=== PATIENT | male | born 1945 | race Two or more races ===

== ENCOUNTER 2017-10-11 15:02 | Inpatient (IN) | payer OTHER ==
[~2017-10-11] VITALS: Ht 167.6 cm; Wt 71.2 kg
[2017-10-11] MEDS ORDERED: CIPRO500 MG (16:20)
[2017-10-11] MEDS ORDERED: LISINOPRIL20 MG (16:21)
[2017-10-11] MEDS ORDERED: GLIPIZIDE ER5 MG (16:21)
[2017-10-11] MEDS ORDERED: ASPIR 8181 MG (16:22)
[2017-10-11] MEDS ORDERED: PLAVIX75 MG (16:22)
[2017-10-11] MEDS ORDERED: SIMVASTATIN20 MG (16:22)
[2017-10-22] MEDS ORDERED: PLAVIX75 MG PO (11:12)
[2017-10-22] MEDS ORDERED: SIMVASTATIN20 MG PO (11:12)
[2017-10-22] MEDS ORDERED: GLIPIZIDE ER5 MG PO (11:12)
[2017-10-22] MEDS ORDERED: LISINOPRIL20 MG PO (11:12)
[2017-10-22] MEDS ORDERED: ASA-EC81 MG PO (11:12)
== END 2017-10-22 13:48 | disposition home or self-care (01) | DRG 617 ==
LOC: ER 15:02 → SURG 10-12 12:03 → SEC-K 10-12 12:03 → SURG 10-12 17:15
PROVIDERS: Specialist
PROC: B44HZZZ Ultrasonography of Bilateral Lower Extremity Arteries (ICD-10-PCS; 2017-10-14)
PROC: 0Y6P0Z0 Detachment at Right 1st Toe, Complete, Open Approach (ICD-10-PCS; 2017-10-17)
PROC: 0Y6R0Z0 Detachment at Right 2nd Toe, Complete, Open Approach (ICD-10-PCS; principal; 2017-10-17 08:15)
DX: E11.621 Type 2 diabetes mellitus with foot ulcer (principal); L03.115 Cellulitis of right lower limb; L97.518 Non-pressure chronic ulcer of other part of right foot with other specified severity; E11.52 Type 2 diabetes mellitus with diabetic peripheral angiopathy with gangrene; I96 Gangrene, not elsewhere classified; N17.8 Other acute kidney failure; E11.65 Type 2 diabetes mellitus with hyperglycemia; I10 Essential (primary) hypertension; E78.4 Other hyperlipidemia; I25.10 Atherosclerotic heart disease of native coronary artery without angina pectoris; L03.031 Cellulitis of right toe; B95.61 Methicillin susceptible Staphylococcus aureus infection as the cause of diseases classified elsewhere; D63.8 Anemia in other chronic diseases classified elsewhere

== ENCOUNTER 2017-12-15 14:54 | Inpatient (IN) | payer OTHER ==
[~2017-12-15] VITALS: Ht 170.2 cm; Wt 68.5 kg
[~2017-12-15 14:54] MED LIST: ASA-EC81 MG PO; ASPIR 8181 MG; CIPRO500 MG; GLIPIZIDE ER5 MG; GLIPIZIDE ER5 MG PO; LISINOPRIL20 MG; LISINOPRIL20 MG PO; PLAVIX75 MG; PLAVIX75 MG PO; SIMVASTATIN20 MG; SIMVASTATIN20 MG PO
[2017-12-26] MEDS ORDERED: GABAPENTIN600 MG PO (10:40)
[2017-12-26] MEDS ORDERED: BACTRIM DS TAB1 EACH PO (10:51)
== END 2017-12-26 11:37 | DRG 240 ==
LOC: ER 14:54 → MEDJ 22:44 → MEDI 22:44 → MEDJ 12-19 10:50
PROVIDERS: Specialist
PROC: B44FZZZ Ultrasonography of Right Lower Extremity Arteries (ICD-10-PCS; 2017-12-17)
PROC: 3E0F7GC Introduction of Other Therapeutic Substance into Respiratory Tract, Via Natural or Artificial Opening (ICD-10-PCS; 2017-12-18)
PROC: 30233N1 Transfusion of Nonautologous Red Blood Cells into Peripheral Vein, Percutaneous Approach (ICD-10-PCS; 2017-12-18)
PROC: 4A12X4Z Monitoring of Cardiac Electrical Activity, External Approach (ICD-10-PCS; 2017-12-18)
PROC: 0Y6H0Z1 Detachment at Right Lower Leg, High, Open Approach (ICD-10-PCS; principal; 2017-12-22 18:30)
DX: E11.52 Type 2 diabetes mellitus with diabetic peripheral angiopathy with gangrene (principal); L03.115 Cellulitis of right lower limb; I70.261 Atherosclerosis of native arteries of extremities with gangrene, right leg; N17.8 Other acute kidney failure; I25.10 Atherosclerotic heart disease of native coronary artery without angina pectoris; E78.4 Other hyperlipidemia; E11.22 Type 2 diabetes mellitus with diabetic chronic kidney disease; I12.9 Hypertensive chronic kidney disease with stage 1 through stage 4 chronic kidney disease, or unspecified chronic kidney disease; N18.1 Chronic kidney disease, stage 1; L97.514 Non-pressure chronic ulcer of other part of right foot with necrosis of bone; B95.2 Enterococcus as the cause of diseases classified elsewhere; D63.1 Anemia in chronic kidney disease; E87.5 Hyperkalemia; E11.65 Type 2 diabetes mellitus with hyperglycemia; Z86.73 Personal history of transient ischemic attack (TIA), and cerebral infarction without residual deficits; B95.61 Methicillin susceptible Staphylococcus aureus infection as the cause of diseases classified elsewhere

== ENCOUNTER 2021-07-19 09:41 | Emergency (ER) | payer OTHER ==
[~2021-07-19] VITALS: Ht 170.2 cm; Wt 71.2 kg
[~2021-07-19 09:41] MED LIST changes: +BACTRIM DS TAB1 EACH PO; +GABAPENTIN600 MG PO
[2021-07-19] MEDS ORDERED: LANTUS SOL100 UNIT/1 (09:59)
[2021-07-19] MEDS ORDERED: HUMALOG100 UNIT/2 (09:59)
[2021-07-19] MEDS ORDERED: COZAAR50 MG PO (09:59)
== END 2021-07-19 11:05 | disposition home or self-care (01) ==
LOC: ER 09:41
DX: S80.812A Abrasion, left lower leg, initial encounter (principal); E11.9 Type 2 diabetes mellitus without complications; W45.8XXA Other foreign body or object entering through skin, initial encounter; Y93.89 Activity, other specified; Y92.89 Other specified places as the place of occurrence of the external cause; Y99.8 Other external cause status

== ENCOUNTER → 2022-12-22 | Emergency (ER) | payer OTHER ==
[~2022-12-22] VITALS: Ht 170.2 cm; Wt 70.3 kg
[~2022-12-22] MED LIST changes: +COZAAR50 MG PO; +HUMALOG100 UNIT/2; +LANTUS SOL100 UNIT/1
== END | disposition home or self-care (01) ==
LOC: ER 09:22
DX: J03.81 Acute recurrent tonsillitis due to other specified organisms (principal); J45.998 Other asthma; J30.9 Allergic rhinitis, unspecified

== ENCOUNTER 2023-02-12 19:07 | Emergency (ER) | payer OTHER ==
[~2023-02-12] VITALS: Ht 170.2 cm; Wt 67.1 kg
== END 2023-02-12 21:43 | disposition home or self-care (01) ==
LOC: ER 19:07
DX: R60.0 Localized edema (principal)

== ENCOUNTER 2024-02-25 07:40 | Inpatient (IN) | payer OTHER ==
[~2024-02-25] VITALS: Ht 170.2 cm; Wt 62.6 kg
--- NOTE | 2024-02-25 08:01 | NUR ---
PACIENTE ALERTA Y ORIENTADO X 3. REFIERE ULCERA SUPURANDO Y CON INFLAMACION EN ROSE MARY DEDO PIE IZQ. REFIERE SER PACIENTE DE DR DIEUDONNE GUTIÉRREZ QUIEN LE AMPUTO TONNY REGAN.
[2024-02-25] MEDS ORDERED: GLYXAMBI 10 MG1 EACH PO (08:05)
[2024-02-25] MEDS ORDERED: XARELTO10 MG PO (08:05)
[2024-02-25] MEDS ORDERED: NORVASC2.5 MG PO (08:06)
[2024-02-25] MEDS ORDERED: ECOTRIN81 MG (08:06)
[2024-02-25] MEDS ORDERED: LIPITOR80 MG PO (08:07)
[2024-02-25] MEDS ORDERED: ZETIA10 MG (08:08)
--- NOTE | 2024-02-25 08:47 | NUR ---
PTE ALERTA Y ORIENTAOD X3, SE EDUCA SOBRE TX MEDICO Y REFIERE ACEPTAR. SE COELCTAN MUESTRAS DE LAB BAJO MEDIDAS ASEPTICA. SE CANALIZA PTE.
[2024-02-25 08:54] LABS: HEMATOCRIT 36.6 % (39.0-48.0); HEMOGLOBIN 12.7 g/dL (13-16.00); MEAN CELL VOLUME 100.3 fL (80.0-100.00); MEAN CORPUSCULAR HEMOGLOBIN 34.9 pg (27.00-32.0); MEAN CORPUSCULAR HGB CONC 34.8 g/dl (32.0-36.0); PLATELET COUNT 195 K/uL (150-450); RED BLOOD COUNT 3.65 M/uL (4.00-6.00)
[2024-02-25 09:00] LABS: ERYTHROCYTE SEDIMENTATION RATE 30 mm/hr
[2024-02-25 09:31] LABS: ALBUMIN 3.8 gm/dL (3.4-5.0); BILIRUBIN TOTAL 1.24 mg/dL (0.3-1.2); CALCIUM 9.3 mg/dL (8.5-10.1); CREATININE SERUM 2.43 mg/dL (0.70-1.30); GFR 25.87; GLOBULINA 4.6 G/DL (2.4-3.5); POTASSIUM 4.58 mEq/L (3.5-5.1); TOTAL PROTEIN 8.4 gm/dL (6.4-8.2)
[2024-02-25 09:43] LABS: C-REACTIVE PROTEIN 7.01 MG/DL (0.00-0.29)
[2024-02-25] MEDS ORDERED: FAMOTIDINE/PF 20 MG in 0.9 % SODIUM CHLORIDE 100 ML IV SCH (14:36)
[2024-02-25] MEDS ORDERED: 0.9 % SODIUM CHLORIDE 1,000 ML IV SCH (14:45)
[2024-02-25] MEDS ORDERED: INSULIN LISPRO 1,000 UNIT/10 ML UNITS SUBCUTANEO PRN (14:45)
[2024-02-25] MEDS ORDERED: ONDANSETRON HCL 4 MG in 0.9 % SODIUM CHLORIDE 50 ML IV PRN (14:45)
[2024-02-25] MEDS ORDERED: ACETAMINOPHEN 325 MG TABLET PO PRN (14:45)
[2024-02-25] MEDS ORDERED: DEXTROSE 50 % IN WATER 0.5 G/ML DISP.SYRIN IV PRN (14:45)
[2024-02-25] MEDS ORDERED: MORPHINE SULFATE 2 MG/ML CARTRIDGE IV PRN (15:00)
[2024-02-25] MEDS ORDERED: FAMOTIDINE/PF 20 MG/2 ML VIAL ONE (15:30)
[2024-02-25] MEDS ORDERED: INSULIN LISPRO 1,000 UNIT/10 ML UNITS SUBCUTANEO ONE (16:32)
[2024-02-25] MEDS ORDERED: levoFLOXacin IN DEXTROSE 5 % 150 ML IV SCH (17:00)
[2024-02-25 17:17] LABS: INR 1.09; PARTIAL THROMBOPLASTIN TIME 36.3 SECONDS (22.0-34.0); PROTHROMBIN TIME 11.4 SECONDS (9.0-11.5)
[2024-02-25 17:20] LABS: ALBUMIN 3.5 gm/dL (3.4-5.0); CALCIUM 9.2 mg/dL (8.5-10.1); CREATININE SERUM 2.25 mg/dL (0.70-1.30); GFR 28.27; PHOSPHOROUS 3.2 mg/dL (2.5-4.9); POTASSIUM 4.46 mEq/L (3.5-5.1)
[2024-02-26] MEDS ORDERED: DEXTROSE 50 % IN WATER 0.5 G/ML VIAL IV PRN (07:15)
[2024-02-26] MEDS ORDERED: FAMOTIDINE/PF 20 MG/2 ML VIAL ONE (09:40)
[2024-02-26] MEDS ORDERED: VANCOMYCIN HCL 1,000 MG VIAL IV SCH (16:00)
[2024-02-26] MEDS ORDERED: CEFTRIAXONE SODIUM 2,000 MG VIAL IV SCH (17:00)
[2024-02-27 15:18] LABS: ALBUMIN 2.9 gm/dL (3.4-5.0); BILIRUBIN TOTAL 0.44 mg/dL (0.3-1.2); CALCIUM 8.5 mg/dL (8.5-10.1); CREATININE SERUM 2.17 mg/dL (0.70-1.30); GFR 29.48; GLOBULINA 3.7 G/DL (2.4-3.5); POTASSIUM 5.25 mEq/L (3.5-5.1); TOTAL PROTEIN 6.6 gm/dL (6.4-8.2)
[2024-02-28] MEDS ORDERED: INSULIN GLARGINE,HUM.REC.ANLOG 1,000 UNITS/10 ML UNITS SUBCUTANEO SCH ×2 (10:49→17:00)
[2024-02-29 08:15] LABS: ALBUMIN 2.6 gm/dL (3.4-5.0); CALCIUM 8.2 mg/dL (8.5-10.1); CREATININE SERUM 2.01 mg/dL (0.70-1.30); GFR 32.2; MAGNESIUM 1.9 mg/dL (1.8-2.4); PHOSPHOROUS 3.4 mg/dL (2.5-4.9); POTASSIUM 5.18 mEq/L (3.5-5.1)
[2024-02-29 08:18] LABS: C-REACTIVE PROTEIN 5.78 MG/DL (0.00-0.29)
[2024-02-29 08:36] LABS: HEMATOCRIT 30.4 % (39.0-48.0); HEMOGLOBIN 10.6 g/dL (13-16.00); MEAN CELL VOLUME 101.6 fL (80.0-100.00); MEAN CORPUSCULAR HEMOGLOBIN 35.5 pg (27.00-32.0); PLATELET COUNT 187 K/uL (150-450); RED BLOOD COUNT 2.99 M/uL (4.00-6.00); RED CELL DISTRIBUTION WIDTH 12.6 % (11.5-14.5)
[2024-03-01] MEDS ORDERED: CEFAZOLIN SODIUM 1,000 MG VIAL IV SCH (17:00)
[2024-03-01 20:40] LABS: PH,URINE 5.5 (5.0-8.0); URINE APPEARANCE Clear; URINE BILIRRUBIN Negative (NEGATIVE); URINE BLOOD Negative; URINE COLOR Yellow; URINE LEUKOCYTE Negative; URINE NITRATE Negative; URINE PROTEIN Trace (NEGATIVE)
[2024-03-01 20:48] LABS: URINE EPITHELIAL CELLS 1.3 uL (0.0-38.8); URINE GLUCOSE >=1000 MG/DL (NEGATIVE); URINE RBC 1.8 uL (0.0-20.8)
[2024-03-02] MEDS ORDERED: FAMOtidine 20 MG TABLET PO SCH (09:00)
[2024-03-02 12:24] LABS: ALBUMIN 2.7 gm/dL (3.4-5.0); BILIRUBIN TOTAL 0.29 mg/dL (0.3-1.2); CALCIUM 8.4 mg/dL (8.5-10.1); CREATININE SERUM 1.51 mg/dL (0.70-1.30); GFR 44.8; GLOBULINA 3.7 G/DL (2.4-3.5); POTASSIUM 5.08 mEq/L (3.5-5.1); TOTAL PROTEIN 6.4 gm/dL (6.4-8.2)
[2024-03-02] MEDS ORDERED: CEFAZOLIN SODIUM 1,000 MG VIAL IV SCH (21:00)
[2024-03-03 10:14] LABS: CALCIUM 8.1 mg/dL (8.5-10.1); CREATININE SERUM 1.5 mg/dL (0.70-1.30); GFR 45.14; POTASSIUM 4.38 mEq/L (3.5-5.1)
[2024-03-04 07:12] LABS: ALBUMIN 2.5 gm/dL (3.4-5.0); CREATININE SERUM 1.5 mg/dL (0.70-1.30); GFR 45.14; PHOSPHOROUS 3.1 mg/dL (2.5-4.9); POTASSIUM 4.86 mEq/L (3.5-5.1)
[2024-03-06] MEDS ORDERED: CLOPIDOGREL BISULFATE 75 MG TABLET PO SCH ×2 (10:03→10:05)
[2024-03-06] MEDS ORDERED: ASPIRIN 81 MG TAB.CHEW PO SCH (10:04)
[2024-03-07 06:25] LABS: CALCIUM 8.1 mg/dL (8.5-10.1); CREATININE SERUM 1.78 mg/dL (0.70-1.30); GFR 37.05; POTASSIUM 4.95 mEq/L (3.5-5.1)
[2024-03-07 06:29] LABS: HEMATOCRIT 28.3 % (39.0-48.0); MEAN CORPUSCULAR HEMOGLOBIN 35.7 pg (27.00-32.0); MEAN CORPUSCULAR HGB CONC 35.4 g/dl (32.0-36.0); PLATELET COUNT 209 K/uL (150-450); RED CELL DISTRIBUTION WIDTH 12.8 % (11.5-14.5)
[2024-03-08 12:02] LABS: INR 1.08; PARTIAL THROMBOPLASTIN TIME 31.4 SECONDS (22.0-34.0); PROTHROMBIN TIME 11.3 SECONDS (9.0-11.5)
[2024-03-08] MEDS ORDERED: MORPHINE SULFATE 4 MG/ML CARTRIDGE IV PRN (18:00)
[2024-03-08] MEDS ORDERED: KETOROLAC TROMETHAMINE 30 MG VIAL IV SCH (18:00)
[2024-03-08] MEDS ORDERED: GABAPENTIN 300 MG CAPSULE PO NR (18:45)
[2024-03-09] MEDS ORDERED: TRAMADOL HCL 50 MG TABLET PO PRN (06:15)
[2024-03-09] MEDS ORDERED: GABAPENTIN 300 MG CAPSULE PO SCH (09:00)
[2024-03-10 12:48] LABS: HEMATOCRIT 30.7 % (39.0-48.0); HEMOGLOBIN 10.6 g/dL (13-16.00); MEAN CELL VOLUME 100.9 fL (80.0-100.00); MEAN CORPUSCULAR HGB CONC 34.7 g/dl (32.0-36.0); PLATELET COUNT 222 K/uL (150-450); RED BLOOD COUNT 3.04 M/uL (4.00-6.00); RED CELL DISTRIBUTION WIDTH 12.8 % (11.5-14.5)
[2024-03-10 13:25] LABS: ALBUMIN 2.5 gm/dL (3.4-5.0); BILIRUBIN TOTAL 0.31 mg/dL (0.3-1.2); CALCIUM 7.9 mg/dL (8.5-10.1); CREATININE SERUM 1.61 mg/dL (0.70-1.30); GFR 41.6; GLOBULINA 3.4 G/DL (2.4-3.5); POTASSIUM 4.4 mEq/L (3.5-5.1); TOTAL PROTEIN 5.9 gm/dL (6.4-8.2)
== END 2024-03-10 16:15 | disposition home or self-care (01) | DRG 256 ==
LOC: ER 07:41 → MEDI 15:59
PROVIDERS: General Practice; Internal Medicine; Internal Medicine Infectious Disease; Specialist; ADMIT Internal Medicine; ATTEND Internal Medicine
PROC: B44HZZZ Ultrasonography of Bilateral Lower Extremity Arteries (ICD-10-PCS; 2024-02-25)
PROC: BL31ZZZ Magnetic Resonance Imaging (MRI) of Lower Extremity Connective Tissue (ICD-10-PCS; 2024-02-26)
PROC: 0Y6S0Z1 Detachment at Left 2nd Toe, High, Open Approach (ICD-10-PCS; principal; 2024-03-08 16:00)
DX: E11.52 Type 2 diabetes mellitus with diabetic peripheral angiopathy with gangrene (principal); I96 Gangrene, not elsewhere classified; L97.528 Non-pressure chronic ulcer of other part of left foot with other specified severity; M86.172 Other acute osteomyelitis, left ankle and foot; N17.9 Acute kidney failure, unspecified; E11.621 Type 2 diabetes mellitus with foot ulcer; L03.032 Cellulitis of left toe; D72.829 Elevated white blood cell count, unspecified; E11.649 Type 2 diabetes mellitus with hypoglycemia without coma; B95.61 Methicillin susceptible Staphylococcus aureus infection as the cause of diseases classified elsewhere; I10 Essential (primary) hypertension; Z89.511 Acquired absence of right leg below knee; Z79.4 Long term (current) use of insulin